=== PATIENT | male | born 1965 ===

== ENCOUNTER → 2021-08-10 11:21 | Outpatient (BNVA) | payer MEDICARE, SELFPAY | PROVIDERS: PCP Nurse Practitioner Family; Visit Provider Nurse Practitioner Family | DX: M25.541 Pain in joints of right hand (principal); M25.542 Pain in joints of left hand; N39.43 Post-void dribbling; Z12.5 Encounter for screening for malignant neoplasm of prostate; Z80.42 Family history of malignant neoplasm of prostate; Z72.51 High risk heterosexual behavior | CPT/HCPCS: 85651; 86431; 87491; 87591; G0103 ==

== ENCOUNTER 2022-01-07 05:40 | Day surgery (SDC) | payer MEDICARE, SELFPAY ==
[2022-01-03 08:57] VITALS: BMI 28.8
[2022-01-07 06:09] VITALS: BP 104/78; PULSE 64; RESP 18; TEMP 36.2; O2SAT 98
[2022-01-07] MEDS: sodium chloride 0.9% 1,000 ML 30 ML IV (06:20)
--- NOTE | 2022-01-07 06:45 | ANES.PREANE2 ---
Pre-Anesthetic Assessment Height/Weight: Height 1.73 m Weight 86.183 kg Temp Pulse Resp BP Pulse Ox 97.2 F L 64 18 104/78 98 01/07/22 06:09 01/07/22 06:09 01/07/22 06:09 01/07/22 06:09 01/07/22 06:09 Operation Date: 01/07/22 07:00 Proposed Procedures p Colonoscopy z12.11(Not Applicable) - Adan Warren MD Familial anesthetic complications: none Last intake: Intake Last Liquid Date 01/06/22 Last Liquid Time 22:30 Last Solid Date 01/05/22 Last Solid Time 17:00 Social No alcohol and No tobacco Airway Submandibular: within normal limits Cervical ROM: Other Mallampati: Class III Dentition: full Comments: Comments: cervical degenerative disc disease with neuropathy. History/ROS No significant history except as noted Pulmonary Chronic Obstructive Pulmonary Disease and Sleep Apnea CV/HEM None reported None reported Hepatic fatty liver per patient. GI None reported Metabolic None reported Musc/skel None reported Neuropsych None reported Anesthetic Plan ASA status: 3 Anesthesia: MAC Medications/Allergies Home Medications Medication Instructions Recorded Confirmed Last Taken Type albuterol sulfate 90 mcg/actuation 2 puff INHALATION Q6H PRN #8.5 g 11/20/21 01/07/22 01/06/22 Rx aerosol inhaler blood-glucose meter #1 ea 11/20/21 11/20/21 Unknown Rx budesonide-formoterol HFA 160 2 puff INHALATION Q12H 90 Days 11/20/21 01/07/22 Unknown Rx mcg-4.5 mcg/actuation aerosol #30.6 g inhaler (Symbicort) gabapentin 300 mg capsule 300 mg PO TID #90 cap 11/20/21 01/07/22 01/04/22 Rx metformin 500 mg tablet 500 mg PO DAILY #30 tab 11/20/21 01/07/22 01/05/22 Rx montelukast 10 mg tablet 10 mg PO DAILY #30 tab 11/20/21 01/07/22 01/04/22 Rx (Singulair) albuterol sulfate 1.25 mg/3 mL 0.83 mg (1.992 mL) INHALATION QID 11/22/21 01/07/22 Unknown Rx solution for nebulization PRN #90 ml codeine 10 mg-guaifenesin 100 mg/5 5 ml PO Q6H PRN #120 ml 11/26/21 01/07/22 Unknown Rx mL oral liquid (G Tussin AC) tamsulosin 0.4 mg capsule (Flomax) 0.4 mg PO DAILY #30 cap 12/26/21 01/07/22 01/06/22 Rx sildenafil 50 mg tablet 50 mg PO DAILY PRN 01/04/22 01/07/22 01/05/22 History Allergies Allergy/AdvReac Type Severity Reaction Status Date / Time Penicillins Allergy Mild Unknown Verified 01/03/22 09:02 iodine Allergy facial Verified 01/03/22 08:48 swelling and itching shellfish derived Allergy ALGY-Swell Verified 01/07/22 06:09 Lip/Tongue/Throat Current Medications Generic Name Dose Route Start Last Admin Trade Name Freq PRN Reason Stop Dose Admin Sodium Chloride 1,000 mls @ 30 mls/hr 01/07/22 06:00 01/07/22 06:20 Sodium Chloride 0.9% IV 01/08/22 05:59 30 mls/hr .Q24H MICHOACANO Administration PFSH Anesthesia Medical History (Updated 11/20/21 @ 14:05 by HANSEL Caballero) Acquired scoliosis Arthritis COPD (chronic obstructive pulmonary disease) DM type 2 (diabetes mellitus, type 2) Hyperlipidemia Pulmonary scarring Traumatic brain injury Family History (Updated 11/20/21 @ 13:48 by HANSEL Caballero) Father Cancer Family/Other , at 60 ALS (amyotrophic lateral sclerosis), Onset Age: 60 Males in his family Paternal Cousin and Paternal Uncle Social History (Updated 11/20/21 @ 13:38 by HANSEL Caballero) Smoking and tobacco status: former smoker Quit status (tobacco): has quit using tobacco Alcohol intake: never Data Anesthesia Cardiac Studies: No Data to Display
--- NOTE | 2022-01-07 07:14 | W.PM.OPSFHP ---
Same Day Surgery H&P Indication for Procedure/HPI DATE OF PROCEDURE: January 07, 2022 CHIEF COMPLAINT/INDICATIONFOR SURGICAL PROCEDURE: Screening PREOP DIAGNOSIS: Screening PLANNED PROCEDURE: Operation Date: 01/07/22 07:00 Proposed Procedures p Colonoscopy z12.11(Not Applicable) - Adan Warren MD Medications/Allergies* Home Medications Medication Instructions Recorded Confirmed Type sildenafil 50 mg tablet 50 mg PO DAILY PRN 01/04/22 01/07/22 History Allergies/Adverse Reactions Allergy/AdvReac Type Severity Reaction Status Date / Time Penicillins Allergy Mild Unknown Verified 01/03/22 09:02 iodine Allergy facial Verified 01/03/22 08:48 swelling and itching shellfish derived Allergy ALGY-Swell Verified 01/07/22 06:09 Lip/Tongue/Throat Current Medications: Generic Name Dose Route Start Last Admin Trade Name Freq PRN Reason Stop Dose Admin Sodium Chloride 1,000 mls @ 30 mls/hr 01/07/22 06:00 01/07/22 06:20 Sodium Chloride 0.9% IV 01/08/22 05:59 30 mls/hr .Q24H MICHOACANO Administration Pertinent History/Comorbid Conditions* Medical History (Updated 11/20/21 @ 14:05 by HANSEL Caballero) Acquired scoliosis Arthritis COPD (chronic obstructive pulmonary disease) DM type 2 (diabetes mellitus, type 2) Hyperlipidemia Pulmonary scarring Traumatic brain injury Family History (Updated 11/20/21 @ 13:47 by HANSEL Caballero) Family/Other, at 60 ALS (amyotrophic lateral sclerosis) Family/Other, Onset Age: 60 Males in his family Paternal Cousin and Paternal Uncle Cancer Father Social History Smoking and tobacco status: former smoker Quit status (tobacco): has quit using tobacco Alcohol intake: never Pertinent Exam Findings alert, oriented x 3, clear to auscultation bilaterally, regular rate & rhythm, operative site marked and procedure specific exam findings Recommendations Surgery/Procedure today Coding Level of Care Code Acute [employer] Consultant for Michele Cary
[2022-01-07 07:38] VITALS: BP 93/66; PULSE 70; RESP 20; TEMP 36.2; O2SAT 99
[2022-01-07 07:44] VITALS: BP 106/77; PULSE 68; RESP 17; O2SAT 98
--- NOTE | 2022-01-07 14:06 | ANE.PACU2 ---
Inpatient post-anesthesia follow up: Airway intact: Yes Vital signs: Temperature 97.2 F Pulse Rate 68 Respiratory Rate 17 Blood Pressure 106/77 Pulse Oximetry 98 Oxygen Delivery Me thod Room Air Oxygen Flow Rate 2 Fraction of Inspir ed Oxygen Hydration adequate: Yes Nausea and vomiting: No Pain level: 1 Mental status: Baseline
== END 2022-01-07 08:07 | disposition home or self-care (01) ==
PROVIDERS: PCP Nurse Practitioner Family; Visit Provider Internal Medicine
PROC: 0DJD8ZZ Inspection of Lower Intestinal Tract, Via Natural or Artificial Opening Endoscopic (ICD-10-PCS; CPT 45378; principal; 2022-01-07 07:00)
DX: Z12.11 Encounter for screening for malignant neoplasm of colon (principal); J44.9 Chronic obstructive pulmonary disease, unspecified; E11.9 Type 2 diabetes mellitus without complications; E78.5 Hyperlipidemia, unspecified; F17.200 Nicotine dependence, unspecified, uncomplicated; M50.30 Other cervical disc degeneration, unspecified cervical region; Z79.84 Long term (current) use of oral hypoglycemic drugs
CPT/HCPCS: 45378; 80053; 80061; 83036; G0121; J2704; J7030